=== PATIENT | female | born 1980 | race Two or more races ===

== ENCOUNTER 2024-07-18 16:16 | Inpatient (IN) | payer MEDICAID, OTHER ==
[~2024-07-18] VITALS: Ht 170.2 cm; Wt 92.8 kg
[2024-07-18] MEDS: NITROGLYCERIN 0.4 MG SL TAB SL ONE ×4 (16:34→20:15)
[2024-07-18 16:50] LABS: Basophils # (auto) 0 10 ^3/uL (0-0.2); Basophils % (auto) 0.5 % (0.0-2.0); Eosinophils # (auto) 0.1 10 ^3/uL (0-0.8); Hematocrit 41.8 % (36.0-46.0); Hemoglobin 14.4 g/dL (12.2-16.2); Lymphocytes % (auto) 30.4 % (10.0-50.0); Mean Corpuscular Hemoglobin 28.9 pg (28.0-32.0); Mean Corpuscular Hgb Conc. 34.4 g/dL (32.0-36.0); Monocytes # (auto) 0.5 10 ^3/uL (0-1.3); Monocytes % (auto) 5.4 % (0.0-12.0); Neutrophils # (auto) 6.1 10 ^3/uL (1.6-8.6); Neutrophils % (auto) 62.7 % (37.0-80.0); Nucleated Red Blood Cells % 0.1 %; Platelet Count (auto) 270 10^3/uL (140-450); Red Blood Cells 4.97 10^6/uL (4.0-5.20); White Blood Cell 9.7 10^3/uL (4.4-10.8)
--- NOTE | 2024-07-18 16:52 | ED.PDOC ---
HPI Comments 44 y.o female presents to the ED for an evaluation of high blood pressure. Patient was at the dentist office and was told her pressure was elevated and was referred to the ED for further evaluation. Patient reports at the time of her dental visit, she did experience substernal chest soreness that is non radiating. Patient received a NTG dose in triage and after taking medication, she began experiencing palpitations. She denies any cardiac history, nausea, vomiting, leg swelling, SOB, fever or chills. Vitals: BP: 187/111 HR: 87 Temp: 97.7 F SPO2: 99% RA RR: 18 Past medical history: Pre DM, hyperlipidemia Past surgical history: Denies Allergies: Denies HPI: Poor Historian. REVIEW OF SYSTEMS: CONSTITUTIONAL: Denies acute: fever, diaphoresis, chills, generalized weakness. HEAD: Denies acute: headache, photophobia Eyes: Denies acute: Double vision, vision loss, eye pain, eye discharge. EARS: Denies acute: tinnitus, hearing loss, ear discharge, ear pain, THROAT: Denies acute: sore throat, swelling, difficulty swallowing , pain with swallowing, change in voice. NECK: Denies acute: neck pain, neck swelling, stiff neck. HEART: Denies acute : LUNGS: Denies acute: SOB, wheezing, cough, hemoptysis ABDOMEN: Denies acute: abdominal pain, Nausea, Vomiting, diarrhea, melena , hematemesis, hematochezia SKIN: Denies acute: rash, redness, lesions, itchiness. EXTREMITIES: Denies acute: calf pain, numbness, tingling, weakness, denies pain in extremity. Denies acute: Low back pain. Neuro: Denies acute: focal neurological deficit, motor or sensory focal neurological deficit, tremors, seizure like activity, confusion, dizziness, change in mental status, loss of bowel or bladder function, cauda equina like symptoms. : Denies acute: dysuria, hematuria, flank pain, increase in urinary frequency. PSYCH: Denies acute: hallucination, suicidal ideation, homicidal ideation. FEMALE: Denies acute: abnormal vaginal bleeding, foul odor, unusual discharge. PHYSICAL EXAM: General: ---no-----acute distress, awake and alert. Head: normocephalic, atraumatic. Neck: supple, trachea is midline, no swelling. Throat: Normal phonation. Eyes:, no erythema, no purulent discharge, no proptosis, no icterus. Heart: regular rate, regular rhythm, no significant murmur appreciated. Lungs: no apparent respiratory distress, Able to speak in full sentences. No wheezing, no rhonchi, no crackles. No stridors Clear to auscultation bilaterally. Abdomen: non tender to palpation, non distended, soft, no guarding, no rebound, + bowel sounds. Neuro: Awake, Alert, oriented to name, self, situation, follows commands GCS=15. Speech is normal. Skin: no petechia, no purpura, no cyanosis, non-pale, not jaundice. Lower extremities: --no - Pitting edema no deformity, no focal swelling, no calf TTP. Makes eye contact. moves all four extremities. Face: no apparent facial droop. Ambulating in the ED independently. ED COURSE: Chief Complaint: High Blood Pressure Time Seen by MD: 16:31 Reviewed Notes: Nurses Notes, Allergies Allergies: Coded Allergies: NO KNOWN ALLERGIES (Unverified , 07/18/24) Information Source: Patient Mode of Arrival: Ambulatory Past Medical History Past Medical History (Other): preDM Surgical History: Denies all surgeries RECYCLE DRIVER History: No Pertinent RECYCLE DRIVER History Family History Family History: Reviewed,noncontributory to illness Social History Smoker: Non-Smoker Alcohol: Denies ETOH Use Drugs: Denies Drug Use Lives In: Home Was a procedure done? Was a procedure done?: No CP Differential Dx Differential Diagnosis: Angina, Electrolyte Disorder, Sinus Tachycardia, N/A Differential Diagnosis: HTN Essential, HTN Accelerated, Other (DDX include renal disease, thyroid disease, electrolyte abnormality, increased salt intake, medications non-compliance, undiagnosed HTN, Hypertensive crisis, hypertensive urgency., drug toxicity.) Differential Diagnosis: Angina, Pericarditis, Other (Ddx include but not limitied to gastritis, musculoskeletal pain, radiculopathy, atypical chest pain, dissection, aneurysm, ACS, unstable angina, hiatal hernia, GERD, anxiety, costochondritis, PE, pneumothroax, neoplasm, cardiac ischemia, drug abuse, anemia.) X-Ray, Labs, Meds, VS Vital Signs Date Time Temp Pulse Resp B/P (MAP) Pulse Ox O2 Delivery O2 Flow Rate FiO2 07/18/24 18:31 80 16 171/90 (117) 97 07/18/24 17:28 82 07/18/24 17:20 165/96 07/18/24 16:34 187/111 07/18/24 16:33 86 07/18/24 16:32 97.7 87 18 187/111 (136) 99 97.7 Lab Test 07/18/24 19:50 07/18/24 17:25 07/18/24 16:30 Range/Units Troponin I High Sensitivity < 3 L < 3 L < 3 L </=34 ng/L White Blood Count 9.7 4.4-10.8 10^3/uL Red Blood Count 4.97 4.0-5.20 10^6/uL Hemoglobin 14.4 12.2-16.2 g/dL Hematocrit 41.8 36.0-46.0 % Mean Corpuscular Volume 84.0 80.0-100.0 fL Mean Corpuscular Hemoglobin 28.9 28.0-32.0 pg Mean Corpuscular Hemoglobin Concent 34.4 32.0-36.0 g/dL Red Cell Distribution Width 14.0 11.8-14.3 % Platelet Count 270 140-450 10^3/uL Mean Platelet Volume 7.2 6.9-10.8 fL Neutrophils (%) (Auto) 62.7 37.0-80.0 % Lymphocytes (%) (Auto) 30.4 10.0-50.0 % Monocytes (%) (Auto) 5.4 0.0-12.0 % Eosinophils (%) (Auto) 1.0 0.0-7.0 % Basophils (%) (Auto) 0.5 0.0-2.0 % Neutrophils # (Auto) 6.1 1.6-8.6 10 ^3/uL Lymphocytes # (Auto) 3.0 0.4-5.4 10 ^3/uL Monocytes # (Auto) 0.5 0-1.3 10 ^3/uL Eosinophils # (Auto) 0.1 0-0.8 10 ^3/uL Basophils # (Auto) 0 0-0.2 10 ^3/uL Nucleated Red Blood Cells 0.1 % Sodium Level 138 136-145 mmol/L Potassium Level 3.9 3.5-5.1 mmol/L Chloride Level 107 98-107 mmol/L Carbon Dioxide Level 24 20-31 mmol/L Anion Gap 7 5-15 Blood Urea Nitrogen 9 9-23 mg/dL Creatinine 0.63 0.550-1.02 mg/dL Glomerular Filtration Rate Calc 114 >90 mL/min BUN/Creatinine Ratio 14.3 10.0-20.0 Serum Glucose 106 74-106 mg/dL Lactic Acid Level 1.0 0.4-2.0 mmol/L Calcium Level 9.7 8.7-10.4 mg/dL Magnesium Level 2.0 1.6-2.6 mg/dL Total Bilirubin 0.5 0.2-1.0 mg/dL Aspartate Amino Transferase (AST) 15 13-40 U/L Alanine Aminotransferase (ALT) 19 7-40 U/L Alkaline Phosphatase 107 46-116 U/L B-Type Natriuretic Peptide 13.39 0-100 pg/mL Total Protein 7.4 5.7-8.2 g/dL Albumin 4.7 3.2-4.8 g/dL Current Medications Medications (Trade) Dose Ordered Sig/Shellie Route Start Time Stop Time Status Last Admin Aspirin (Ecotrin Enteric Coated Tablet) 325 mg ONCE ONCE PO 07/18/24 16:30 07/18/24 16:33 DC 07/18/24 17:15 Nitroglycerin (Ntrostat Sublingual) 0.4 mg ONCE ONCE SL 07/18/24 16:30 07/18/24 16:33 DC 07/18/24 16:34 [place] [id number] Ph: [phone] DIAGNOSTIC IMAGING Diagnostic Imaging Report : [id number] Signed PATIENT: MILADY LIRA BRENDAACCT: [id number] UNIT: [id number] : 1980 LOC: ER ROOM / BED: / AGE / SEX: 44 / F ADM STATUS: REG ER SERVICE 1630 ORDERING PHYSICIAN: AAMIR ARIAS DO PROCEDURE(s): CXRP - CHEST PORTABLE REASON: cp ORDER NUMBER(s): [id number], ACCESSION NUMBER(s): [id number] CHEST RADIOGRAPH Indication: cp Technique: Single frontal view of the chest was obtained Comparison: None FINDINGS: Heart size is normal trachea is midline. Emani start mainstem bronchi is normal. Main pulmonary arteries are unremarkable there are no infiltrates or effusions. There slightly prominent peripheral markings otherwise unremarkable study. . IMPRESSION: 1. Slightly prominent peripheral markings which is a nonspecific finding. Follow-up PA and lateral may be helpful ATED BY: GARRETT SUMNER MD DICTATED DATE/TIME: 07/18/241756 SIGNED BY: GARRETT SUMNER MD SIGNED DATE/TIME: 07/18/241756 CC: Time of 1ST Reevaluation: 16:47 Reevaluation 1ST: Unchanged Time of 2ND Reevaluation: 22:50 Reevaluation 2ND: Improved Patient Education/Counseling: Diagnosis, Treatment Family Education/Counseling: No Family Present Comments Patient presented with the above HPI.--cardiac----workup was initiated. patient was found with the above mentioned diagnosis. the following medications were ordered: please refer to order lists of meds and tests obtained by myself Dr. Arias. Patient ED course and VS have been stabilized. Patient has been reassessed in the ED and remained in a stable condition. Pertinent incidental findings were discussed with the patient and/or family. Patient/family voices understanding and is agreeable with plan. Patient has been observed in the ED adequate length of time to insure improvement/stability. Escalation of care considered: Consideration of escalation to observation or admission Patient was ADMITTED to the medicine team for further evaluation and treatment of their presentation. All the reports of any imaging studies that were ordered by myself were reviewed by myself. Departure 1 Departure Time of Disposition: 20:11 Impression: Primary Impression: Chest pain Additional Impression: Hypertensive crisis Disposition: 09 ADMITTED INPATIENT Admit to: Tele Condition: Guarded Discharged With: Self Critical Care Note Critical Care Time?: No Heart Score Heart Score: Heart Score Response (Comments) Value History Slightly Suspicious 0 EKG Normal 0 Age <45 0 Risk Factors >3 or Hx ASHD 2 Troponin Normal limit 0 Total 2 I personally scribed for AAMIR ARIAS DO ([email or web address]) on 07/18/24 at 16:52. Electronically submitted by Silvana Banks ([facility]). I personally scribed for AAMIR ARIAS DO ([email or web address]) on 07/18/24 at 20:11. Electronically submitted by Silvana Banks ([facility]). AAMIR ARIAS DO Jul 18, 2024 16:52
[2024-07-18 17:08] LABS: Alanine Aminotransferase 19 U/L (7-40); Albumin 4.7 g/dL (3.2-4.8); Alkaline Phosphatase 107 U/L (46-116); Anion Gap 7 (5-15); Aspartate Aminotransferase 15 U/L (13-40); BUN/Creatinine Ratio 14.3 (10.0-20.0); Calcium 9.7 mg/dL (8.7-10.4); Carbon Dioxide 24 mmol/L (20-31); Potassium 3.9 mmol/L (3.5-5.1); Sodium 138 mmol/L (136-145); Total Protein 7.4 g/dL (5.7-8.2)
[2024-07-18 17:09] LABS: Bilirubin, Total 0.5 mg/dL (0.2-1.0)
[2024-07-18 17:14] LABS: Blood Urea Nitrogen 9 mg/dL (9-23); Chloride 107 mmol/L (98-107); Glucose 106 mg/dL (74-106)
[2024-07-18] MEDS: ASPirin-EC 325mg tab PO ONE (17:15)
--- NOTE | 2024-07-18 17:59 | DVH ---
CHEST RADIOGRAPH Indication: cp Technique: Single frontal view of the chest was obtained Comparison: None FINDINGS: Heart size is normal trachea is midline. Emani start mainstem bronchi is normal. Main pulmonary ar teries are unremarkable there are no infiltrates or effusions. There slightly prominent peripheral m arkings otherwise unremarkable study. . IMPRESSION: 1. Slightly prominent peripheral markings which is a nonspecific finding. Follow-up PA and lateral ma y be helpful
--- NOTE | 2024-07-18 20:27 | DVH ---
XY CHEST TWO VIEWS ROUTINE CLINICAL HISTORY: cp COMPARISON: None TECHNIQUE: Frontal and lateral view of the chest was obtained FINDINGS: Lines and Tubes: None Lungs: No focal consolidation. Pleura: No effusion. No pneumothorax. Cardiomediastinal contours: Unremarkable Bones: No acute osseous abnormality. IMPRESSION: 1. No acute cardiopulmonary disease.
--- NOTE | 2024-07-18 23:24 | DVHHPRES ---
History of Present Illness Resident Creating Document: BUTCH CISNEROS RESDIENT History of Present Illness This is a 44-year-old female with past medical history of prediabetes, dyslipidemia referred from her dentist office due to high blood pressure. She also reports substernal chest discomfort, which describes as pressure-like, with no radiation, 6/10, with no clear exacerbating or relieving factor. She also reports headache and burping. She also reports of high blood pressure record 2 weeks back. She denies fever, cough, shortness of breath, nausea, vomiting or any sick contact. PMHx: prediabetes, dyslipidemia PSHx: Not significant Family history: Mother and father has diabetes Social history: Lives with the family at home, denies smoking or any other drug use Home medication: Taking no medicine Allergic history: No known allergic Review of Systems Review of Systems General: patient denies fever, fatigue, weaknes, sweating, any recent changes in appetite and weight HEENT: Reports headache Cardiovascular: Reports chest discomfort Respiratory: No cough, and wheezing. Gastrointestinal: Reports burping Genitourinary: No dysuria, hematuria, discharge, frequency, urgency, nocturia, incontinence, and urinary retention. Endocrine: No heat or cold intolerance, polydipsia, polyuria, and polyphagia. Neurological: No dizziness, extremity weakness and numbness, tremors, gait disturbance, seizures, and memory impairment. Psychiatric: Denies depression, anxiety,or insomnia. Musculoskeletal: Denies neck pain, stiffness and swelling, back pain, muscle weakness, joint pain, stiffness, swelling, or limited range of motion. Skin: No rashes, itching, skin lesion, changes in hair, nail, skin texture and breast. Hematologic/Lymphatic: Denies easy bruising, bleeding tendencies, or lymph node enlargement. Allergies: Coded Allergies: NO KNOWN ALLERGIES (Unverified , 07/18/24) Exam Vital Signs Vital Signs Date Time Temp Pulse Resp B/P (MAP) Pulse Ox O2 Delivery O2 Flow Rate FiO2 07/18/24 18:31 80 16 171/90 (117) 97 07/18/24 16:32 97.7 97.7 Exam General Appearance: Alert, Oriented X3, Cooperative, No acute distress HEENT: Atraumatic, PERRLA, EOMI, Mucous membrane moist/pink Respiratory: Clear to auscultation, Normal air movement Cardiovascular: Regular rate, Normal S1, Normal S2, No murmurs, no chest wall tenderness Abdominal: Normal bowel sounds, Soft, No tenderness, No hepatospenomegaly, No masses Extremities: No clubbing, No cyanosis, No edema, Normal pulses, No tenderness/swelling Skin: No rashes, No breakdown, No significant lesion Neuro: Normal gait, Normal speech, Strength at 5/5 X4 ext, Normal tone, Sensation intact, Cranial nerves 3-12 NL, Reflexes 2+ Psych/Mental Status: Mental status NL, Mood NL Labs/Xrays Labs Test 07/18/24 19:50 07/18/24 16:30 Range/Units Troponin I High Sensitivity < 3 L </=34 ng/L White Blood Count 9.7 4.4-10.8 10^3/uL Red Blood Count 4.97 4.0-5.20 10^6/uL Hemoglobin 14.4 12.2-16.2 g/dL Hematocrit 41.8 36.0-46.0 % Mean Corpuscular Volume 84.0 80.0-100.0 fL Mean Corpuscular Hemoglobin 28.9 28.0-32.0 pg Mean Corpuscular Hemoglobin Concent 34.4 32.0-36.0 g/dL Red Cell Distribution Width 14.0 11.8-14.3 % Platelet Count 270 140-450 10^3/uL Mean Platelet Volume 7.2 6.9-10.8 fL Neutrophils (%) (Auto) 62.7 37.0-80.0 % Lymphocytes (%) (Auto) 30.4 10.0-50.0 % Monocytes (%) (Auto) 5.4 0.0-12.0 % Eosinophils (%) (Auto) 1.0 0.0-7.0 % Basophils (%) (Auto) 0.5 0.0-2.0 % Neutrophils # (Auto) 6.1 1.6-8.6 10 ^3/uL Lymphocytes # (Auto) 3.0 0.4-5.4 10 ^3/uL Monocytes # (Auto) 0.5 0-1.3 10 ^3/uL Eosinophils # (Auto) 0.1 0-0.8 10 ^3/uL Basophils # (Auto) 0 0-0.2 10 ^3/uL Nucleated Red Blood Cells 0.1 % Sodium Level 138 136-145 mmol/L Potassium Level 3.9 3.5-5.1 mmol/L Chloride Level 107 98-107 mmol/L Carbon Dioxide Level 24 20-31 mmol/L Anion Gap 7 5-15 Blood Urea Nitrogen 9 9-23 mg/dL Creatinine 0.63 0.550-1.02 mg/dL Glomerular Filtration Rate Calc 114 >90 mL/min BUN/Creatinine Ratio 14.3 10.0-20.0 Serum Glucose 106 74-106 mg/dL Lactic Acid Level 1.0 0.4-2.0 mmol/L Calcium Level 9.7 8.7-10.4 mg/dL Magnesium Level 2.0 1.6-2.6 mg/dL Total Bilirubin 0.5 0.2-1.0 mg/dL Aspartate Amino Transferase (AST) 15 13-40 U/L Alanine Aminotransferase (ALT) 19 7-40 U/L Alkaline Phosphatase 107 46-116 U/L B-Type Natriuretic Peptide 13.39 0-100 pg/mL Total Protein 7.4 5.7-8.2 g/dL Albumin 4.7 3.2-4.8 g/dL Assessment/Plan Assessment/Plan Chest pain,? ACS Hypertensive urgency Prediabetes Dyslipidemia EKGs shows normal sinus rhythm with no acute ST or T-wave changes Serial trop I is within normal limits Check echocardiogram Aspirin Atorvastatin Amlodipine and lisinopril Pain control DIET: Cardiac diet DVT PROPHYLAXIS: Lovenox GI PROPHYLAXIS:: Protonix CODE STATUS: Goal of care discussed for more than 18 minutes, full code DISPOSITION: Telemetry Patient's status and plan discussed with the patient. Case discussed with Dr. Peñaloza. Plan discussed with: Patient My Orders Orders - BUTCH CISNEROS RESDIYUNG Procedure Category Date Status Time Admit ADMIT 07/18/24 Verified 23:18 Code Status CODE 07/18/24 Verified 23:18 Vital Signs [facility] 07/18/24 Verified 23:18 Review Orders With [facility] 07/18/24 Verified Adm. 23:18 Consistent DIET 07/19/24 Verified Carb(Ccho)Diabetes Breakfast Acetaminophen Tablet PHA 07/18/24 Verified (Tylenol Tablet) 23:30 Notify Of Changes [facility] 07/18/24 Verified From Base 23:18 Advance Directive [facility] 07/18/24 Verified 23:18 Echo 2d Mode Cardiac US 07/18/24 Verified DOP 23:18 Lipid Panel LAB 07/18/24 Verified 23:18 Patient Condition ORDERS 07/18/24 Verified 23:18 Allergies NARGIS 07/18/24 Verified 23:18 Hydrocodone-Acet PHA 07/18/24 Verified 5/325mg Tab ([place] 23:30 Date of Service: Jul 18, 2024 Billing Provider: BETO PEÑALOZA MD Common Visit Codes: [id number] INP/OBS CARE (HIGH) BUTCH CISNEROS RESDIENT Jul 18, 2024 23:24 BETO PEÑALOZA MD Jul 19, 2024 11:05
[2024-07-18] MEDS ORDERED: ONDANSETRON HCL 4 MG/2 ML VIAL IV PRN (23:30)
[2024-07-18] MEDS ORDERED: HYDROcodone-ACET 5/325MG TAB PO PRN (23:30)
[2024-07-18] MEDS ORDERED: ACETAMINOPHEN 325 MG TAB PO PRN (23:30)
[2024-07-18] MEDS ORDERED: NITROGLYCERIN 0.4 MG SL TAB SL PRN (23:30)
[2024-07-19] MEDS: ATORVASTATIN 20 MG TAB PO ONE (01:05)
[2024-07-19] MEDS: LISINOPRIL 5 MG TAB PO ONE (01:06)
[2024-07-19] MEDS: amLODIPine BESYLATE 5 MG TAB PO ONE (01:06)
[2024-07-19] MEDS: PANTOPRAZOLE 40 MG/10 ML VIAL INJ IV ONE (01:07)
[2024-07-19 01:50] VITALS: BP 137/70; PULSE 81; TEMP 98.2; O2SAT 96
[2024-07-19 02:10] VITALS: BP 133/79; PULSE 81; RESP 20; TEMP 98.4; O2SAT 96
[2024-07-19] MEDS: MORPHINE SULFATE INJ 2 MG/ml SYRG IV PRN (02:53)
[2024-07-19 05:00] VITALS: BP 111/71; PULSE 80; RESP 17; TEMP 98.2; O2SAT 96
[2024-07-19 05:24] LABS: Basophils # (auto) 0 10 ^3/uL (0-0.2); Basophils % (auto) 0.3 % (0.0-2.0); Eosinophils # (auto) 0.1 10 ^3/uL (0-0.8); Eosinophils % (auto) 1.2 % (0.0-7.0); Hematocrit 38.2 % (36.0-46.0); Hemoglobin 13.5 g/dL (12.2-16.2); Lymphocytes % (auto) 33.3 % (10.0-50.0); Mean Corpuscular Hemoglobin 29.6 pg (28.0-32.0); Mean Corpuscular Hgb Conc. 35.2 g/dL (32.0-36.0); Mean Corpuscular Volume 84.1 fL (80.0-100.0); Monocytes # (auto) 0.5 10 ^3/uL (0-1.3); Monocytes % (auto) 5.8 % (0.0-12.0); Neutrophils # (auto) 5.4 10 ^3/uL (1.6-8.6); Neutrophils % (auto) 59.4 % (37.0-80.0); Platelet Count (auto) 262 10^3/uL (140-450); Red Blood Cells 4.55 10^6/uL (4.0-5.20); Red Cell Distribution Width 14.1 % (11.8-14.3); White Blood Cell 9.1 10^3/uL (4.4-10.8)
[2024-07-19 05:42] LABS: Alanine Aminotransferase 14 U/L (7-40); Albumin 4.6 g/dL (3.2-4.8); Alkaline Phosphatase 99 U/L (46-116); Anion Gap 9 (5-15); BUN/Creatinine Ratio 20.3 (10.0-20.0); Bilirubin, Total 0.5 mg/dL (0.2-1.0); Blood Urea Nitrogen 13 mg/dL (9-23); Calcium 9.5 mg/dL (8.7-10.4); Carbon Dioxide 21 mmol/L (20-31); Potassium 3.7 mmol/L (3.5-5.1); Sodium 139 mmol/L (136-145); Total Protein 7.4 g/dL (5.7-8.2)
[2024-07-19 05:44] LABS: Aspartate Aminotransferase 13 U/L (13-40); Chloride 109 mmol/L (98-107); Glucose 110 mg/dL (74-106)
[2024-07-19 05:51] LABS: INR 1.04 (0.9-1.15); Partial Thromboplastin Time 29.3 SEC (24.5-34.5)
[2024-07-19 06:02] LABS: LDL Cholesterol 85 mg/dL (< 100)
[2024-07-19 06:03] LABS: Cholesterol 131 mg/dL (< 200); HDL Cholesterol 26 mg/dL (40-59); Triglycerides 178 mg/dL (< 150)
[2024-07-19 08:00] VITALS: PULSE 77; RESP 18; O2SAT 95
[2024-07-19 09:01] VITALS: BP 115/72; PULSE 77; RESP 18; TEMP 97.7; O2SAT 95
[2024-07-19] MEDS: ENOXAPARIN SOD 40 MG/0.4 ML SYRINGE SC SCH (10:00)
[2024-07-19] MEDS: ASPirin 81 mg TAB PO SCH (10:05)
[2024-07-19] MEDS: amLODIPine BESYLATE 5 MG TAB PO SCH (10:05)
[2024-07-19] MEDS: LISINOPRIL 5 MG TAB PO SCH (10:05)
[2024-07-19] MEDS: PANTOPRAZOLE 40 MG/10 ML VIAL INJ IV SCH (10:06)
--- NOTE | 2024-07-19 10:09 | ECG ---
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
--- NOTE | 2024-07-19 10:09 | ECG ---
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
[2024-07-19 10:20] LABS: Free T4 (Free Thyroxine) 1.56 ng/dL (0.89-1.76); T3 Total 2.21 ng/mL (0.60-1.81)
[2024-07-19] MEDS ORDERED: LISI20TA56 PO (13:49)
[2024-07-19 13:53] VITALS: BP 108/64; PULSE 90; RESP 17; TEMP 97.7; O2SAT 95
--- NOTE | 2024-07-19 19:45 | DVHDSRES ---
Discharge Summary Date of Admission Resident Creating Document: ISABELLE MCNULTY RESIDENT Jul 18, 2024 at 23:18 Date of Discharge: Jul 19, 2024 Admitting Diagnosis Chest pain,? ACS Hypertensive urgency Prediabetes Dyslipidemia Wounds: none Labs/Diagnostic Data: Laboratory Results Test 07/19/24 04:45 07/18/24 19:50 07/18/24 16:30 White Blood Count 9.1 10^3/uL (4.4-10.8) Red Blood Count 4.55 10^6/uL (4.0-5.20) Hemoglobin 13.5 g/dL (12.2-16.2) Hematocrit 38.2 % (36.0-46.0) Mean Corpuscular Volume 84.1 fL (80.0-100.0) Mean Corpuscular Hemoglobin 29.6 pg (28.0-32.0) Mean Corpuscular Hemoglobin Concent 35.2 g/dL (32.0-36.0) Red Cell Distribution Width 14.1 % (11.8-14.3) Platelet Count 262 10^3/uL (140-450) Mean Platelet Volume 7.4 fL (6.9-10.8) Neutrophils (%) (Auto) 59.4 % (37.0-80.0) Lymphocytes (%) (Auto) 33.3 % (10.0-50.0) Monocytes (%) (Auto) 5.8 % (0.0-12.0) Eosinophils (%) (Auto) 1.2 % (0.0-7.0) Basophils (%) (Auto) 0.3 % (0.0-2.0) Neutrophils # (Auto) 5.4 10 ^3/uL (1.6-8.6) Lymphocytes # (Auto) 3.0 10 ^3/uL (0.4-5.4) Monocytes # (Auto) 0.5 10 ^3/uL (0-1.3) Eosinophils # (Auto) 0.1 10 ^3/uL (0-0.8) Basophils # (Auto) 0 10 ^3/uL (0-0.2) Nucleated Red Blood Cells 0.0 % Prothrombin Time 11.0 sec (9.3-11.8) Prothrombin Time INR 1.04 (0.9-1.15) Activated Partial Thromboplast Time 29.3 SEC (24.5-34.5) D-Dimer, Quantitative 0.28 mg/L FEU (0.0-0.49) Sodium Level 139 mmol/L (136-145) Potassium Level 3.7 mmol/L (3.5-5.1) Chloride Level 109 mmol/L (98-107) Carbon Dioxide Level 21 mmol/L (20-31) Anion Gap 9 (5-15) Blood Urea Nitrogen 13 mg/dL (9-23) Creatinine 0.64 mg/dL (0.550-1.02) Glomerular Filtration Rate Calc 113 mL/min (>90) BUN/Creatinine Ratio 20.3 (10.0-20.0) Serum Glucose 110 mg/dL (74-106) Hemoglobin A1c 5.5 % A1C (<5.7) Calcium Level 9.5 mg/dL (8.7-10.4) Total Bilirubin 0.5 mg/dL (0.2-1.0) Aspartate Amino Transferase (AST) 13 U/L (13-40) Alanine Aminotransferase (ALT) 14 U/L (7-40) Alkaline Phosphatase 99 U/L (46-116) Total Protein 7.4 g/dL (5.7-8.2) Albumin 4.6 g/dL (3.2-4.8) Triglycerides Level 178 mg/dL (< 150) Cholesterol Level 131 mg/dL (< 200) LDL Cholesterol 85 mg/dL (< 100) HDL Cholesterol 26 mg/dL (40-59) Thyroid Stimulating Hormone (TSH) 6.66 uIU/mL (0.55-4.78) Free Thyroxine (T4) Calculated 1.56 ng/dL (0.89-1.76) Total Triiodothyronine (TT3) 2.21 ng/mL (0.60-1.81) Troponin I High Sensitivity < 3 ng/L (</=34) Lactic Acid Level 1.0 mmol/L (0.4-2.0) Magnesium Level 2.0 mg/dL (1.6-2.6) B-Type Natriuretic Peptide 13.39 pg/mL (0-100) Other Laboratory Tests 07/19/24 04:45 Brief Hx & Hospital Course: Patient is a 44-year-old female with no significant past medical history presented to the ED with a chief complaint of high blood pressure readings and left-sided chest pain. Patient reported since the last 2-3 weeks she has been having intermittent episodes of high blood pressure readings maximum of 165 SBP and few hours prior to admission she started to have left-sided chest pain in the upper chest, nonradiating, occurred at rest, no aggravating or relieving factors following which she came to the hospital for further evaluation. While in the hospital patient underwent a 12 lead ECG which showed sinus rhythm with no ST segment or T-wave changes. We did echocardiogram which was not formally reported with a store sales consultant but on visual interpretation patient seemed to have good left ventricular wall contraction and did not seem to have any valvular abnormalities. Patient will be followed up in the discharge clinic in 2 weeks and if any abnormality is found on the echocardiogram that will be discussed. Patient was managed in the hospital with oral antihypertensive medications. Patient's TSH level was elevated at 6.6 and free T4 level was normal which was likely subclinical hypothyroidism but as TSH is less than 10 patient is currently not started on any medication. Patient was advised to take blood pressure readings at home for 2 weeks and follow up in the DC clinic for medication adjustment. Discharge medication: Lisinopril 10 mg daily Diet: Advised DASH diet Advised at least 150 minutes of aerobic exercise every week Condition at Discharge: Good Final Diagnosis/Problems List Hypertensive Urgency Hypertensive heart disease Chest pain, ACS ruled out likely costochondritis Discharge Disposition: Home Discharge Instruct/Medications Diet: See Comment Diet comment: DASH diet Activity: No Restrictions, As Tolerated Activity comment: advised to do about 150 mins of aerobic exercise every week Follow Up/Referral: Follow up in the D/c clinic in 2 weeks with daily blood pressure readings Medications: as per EMR Discharge Statement: "Patient was advised to return to the ER or call 911 if any headaches, dizziness, shortness of breath, chest pain, abdominal pain, bleeding, fevers, or worsening of medical condition. Patient was counseled about treatment plan, medications, possible side effects, patientverbalized understanding. All questions were answered to the best of my ability. This discharge took greater then 30 minutes in planning, reviewing documentation, counseling the patient, and discussing with other team members." ASSESSMENT ASSESSMENT Assessment Hypertensive Urgency Hypertensive heart disease Chest pain, ACS ruled out likely costochondritis ISABELLE MCNULTY RESIDENT Jul 19, 2024 19:45
[2024-07-19] MEDS ORDERED: ATORVASTATIN 20 MG TAB PO SCH (22:00)
== END 2024-07-19 14:55 | disposition home or self-care (01) | DRG 199 ==
LOC: ER 16:16 → OVERFLOW 23:18
PROVIDERS: ADMIT Student in an Organized Health Care Education/Training Program; ATTEND Emergency Medicine
DX: I16.0 Hypertensive urgency (principal); I11.9 Hypertensive heart disease without heart failure; E03.8 Other specified hypothyroidism; M94.0 Chondrocostal junction syndrome [Tietze]; E78.5 Hyperlipidemia, unspecified; R73.9 Hyperglycemia, unspecified; R73.03 Prediabetes; Z83.3 Family history of diabetes mellitus; Z79.899 Other long term (current) drug therapy; Z79.82 Long term (current) use of aspirin
CPT/HCPCS: 36415; 71045; 71046; 80053; 80061; 83036; 83605; 83735; 83880; 84439; 84443; 84480; 84484; 85025; 85379; 85610; 85730; 93005; 93306; G0378; J2470